=== PATIENT | female | born 1960 | race Caucasian/White ===

== ENCOUNTER → 2017-01-04 | Outpatient (REF) | payer OTHER ==
[~2017-01-04] MED LIST: /AMLO25TA PO; ADV250INH INH; ALBU17IN INH; AUGM875T27 PO; MUCI600T34 PO; NICO21DI26 EXT; NYAM10003 EXT; PRED20TA PO; SPIRIVA INH; TYLE650T30 PO
[2017-01-04 12:40] LABS: ALBUMIN 3.5 GM/DL (3.2-5.2); ALBUMIN/GLOBULIN RATIO 0.97 (1.00-1.93); ALKALINE PHOSPHATASE 160 U/L (45-117); ALT/SGPT 19 U/L (12-78); ANION GAP 6 MEQ/L (8-16); AST/SGOT 12 U/L (15-37); BILIRUBIN,TOTAL 0.3 MG/DL (0.2-1.0); BLOOD UREA NITROGEN 14 MG/DL (7-18); CALCIUM LEVEL 9.2 MG/DL (8.5-10.1); CARBON DIOXIDE LEVEL 33 MEQ/L (21-32); CHLORIDE LEVEL 102 MEQ/L (98-107); CHOLESTEROL LEVEL 145 MG/DL (<200); CREATININE FOR GFR 0.71 MG/DL (0.55-1.02); GLOMERULAR FILTRATION RATE > 60.0 (>51); GLUCOSE, FASTING 87 MG/DL (70-105); SODIUM LEVEL 141 MEQ/L (136-145); TOTAL PROTEIN 7.1 GM/DL (6.4-8.2); TRIGLYCERIDES LEVEL 118 MG/DL (<150)
== END ==
LOC: M SFHCPLAZ 10:05
PROVIDERS: ATTEND Internal Medicine
DX: E11.9 Type 2 diabetes mellitus without complications (principal); E78.5 Hyperlipidemia, unspecified; I10 Essential (primary) hypertension

== ENCOUNTER → 2017-06-09 | Outpatient (REF) | payer OTHER ==
[2017-06-09 14:17] LABS: ALBUMIN 3.5 GM/DL (3.2-5.2); ALBUMIN/GLOBULIN RATIO 0.95 (1.00-1.93); ALKALINE PHOSPHATASE 140 U/L (45-117); ALT/SGPT 22 U/L (12-78); ANION GAP 5 MEQ/L (8-16); AST/SGOT 11 U/L (15-37); BILIRUBIN,TOTAL 0.4 MG/DL (0.2-1.0); BLOOD UREA NITROGEN 18 MG/DL (7-18); CALCIUM LEVEL 9.3 MG/DL (8.5-10.1); CARBON DIOXIDE LEVEL 32 MEQ/L (21-32); CHLORIDE LEVEL 98 MEQ/L (98-107); CHOLESTEROL LEVEL 186 MG/DL (<200); CREATININE FOR GFR 0.76 MG/DL (0.55-1.02); GLOMERULAR FILTRATION RATE > 60.0 (>51); GLUCOSE, FASTING 86 MG/DL (70-105); POTASSIUM SERUM 4.7 MEQ/L (3.5-5.1); SODIUM LEVEL 135 MEQ/L (136-145); TOTAL PROTEIN 7.2 GM/DL (6.4-8.2); TRIGLYCERIDES LEVEL 141 MG/DL (<150)
== END ==
LOC: M SFHCPLAZ 09:04
PROVIDERS: ATTEND Internal Medicine
DX: E11.9 Type 2 diabetes mellitus without complications (principal); E78.5 Hyperlipidemia, unspecified; I10 Essential (primary) hypertension

== ENCOUNTER → 2017-11-30 | Outpatient (REF) | payer OTHER ==
[2017-11-30 11:19] LABS: ESTIMATED AVERAGE GLUCOSE 128 MG/DL (60-110); HEMOGLOBIN A1c 6.1 %
== END ==
LOC: M SFHCPLAZ 09:55
DX: E11.9 Type 2 diabetes mellitus without complications (principal)
CPT/HCPCS: 83036

== ENCOUNTER → 2018-05-31 | Outpatient (REF) | payer OTHER ==
[2018-05-31 12:39] LABS: MALB URINE SIEMENS 21.4 MG/L; MAU/CREAT RATIO 12.1 MCG/MG (0.0-30.0)
[2018-05-31 13:30] LABS: VITAMIN B12 LEVEL 406 PG/ML (247-911)
[2018-05-31 13:33] LABS: ESTIMATED AVERAGE GLUCOSE 131 MG/DL (60-110); HEMOGLOBIN A1c 6.2 %
== END ==
LOC: M SFHCPLAZ 09:03
DX: E11.9 Type 2 diabetes mellitus without complications (principal)
CPT/HCPCS: 82607

== ENCOUNTER 2019-01-08 11:03 | Emergency (ER) | payer OTHER ==
[~2019-01-08] VITALS: Ht 167.6 cm; Wt 108.2 kg
[2019-01-08 11:04] VITALS: BP 173/77
[2019-01-08] MEDS ORDERED: METF10004 (11:10)
[2019-01-08] MEDS ORDERED: LISI10TA4 (11:10)
[2019-01-08] MEDS ORDERED: NAPR-50 PO (11:33)
[2019-01-08] MEDS ORDERED: ROBA500T PO (11:33)
[2019-01-08] MEDS ORDERED: NAPROXEN 250 MG TAB PO ONE (11:45)
== END 2019-01-08 11:51 | disposition home or self-care (01) ==
LOC: M ED 11:03
DX: M54.5 Low back pain (principal); M62.830 Muscle spasm of back; I10 Essential (primary) hypertension; E11.9 Type 2 diabetes mellitus without complications; F17.200 Nicotine dependence, unspecified, uncomplicated; Z79.899 Other long term (current) drug therapy; Z79.84 Long term (current) use of oral hypoglycemic drugs

== ENCOUNTER → 2019-05-30 | Outpatient (REF) | payer OTHER ==
[~2019-05-30] MED LIST changes: -/AMLO25TA PO; +LISI10TA4; +METF10004; +NAPR-837 PO; +NORV2TAB PO; +ROBA500T PO
[2019-05-30 12:51] LABS: BLOOD UREA NITROGEN 11 MG/DL (7-18); CALCIUM LEVEL 9.5 MG/DL (8.8-10.2); CARBON DIOXIDE LEVEL 33 MEQ/L (21-32); CHLORIDE LEVEL 102 MEQ/L (98-107); CREATININE FOR GFR 0.84 MG/DL (0.55-1.30); GLOMERULAR FILTRATION RATE > 60.0 (>45); GLUCOSE, FASTING 88 MG/DL (70-100); POTASSIUM SERUM 4.5 MEQ/L (3.5-5.1); SODIUM LEVEL 138 MEQ/L (136-145)
== END ==
LOC: M SFHCPLAZ 10:18
PROVIDERS: ATTEND Family Medicine
DX: R79.81 Abnormal blood-gas level (principal)

== ENCOUNTER 2019-08-24 09:26 | Emergency (ER) | payer OTHER ==
[~2019-08-24] VITALS: Ht 167.6 cm; Wt 119.6 kg
[2019-08-24] MEDS ORDERED: ALBUTEROL SULFATE 2.5 MG/0.5 ML INH NEB SOLN INH ONE (10:00)
[2019-08-24] MEDS ORDERED: IPRATROPIUM 0.5MG/ALBUTEROL 2.5MG INH SOL UD 3ML (DUONEB)(J7620) NEB ONE (10:00)
[2019-08-24] MEDS ORDERED: dexameTHASONE 20 MG/5 ML VIAL (J1100) IV ONE (10:00)
--- NOTE | 2019-08-24 10:23 | REP ---
CHEST, SINGLE VIEW: Single view of the chest is performed. Comparison 11/02/2012. There is no acute infiltrate. There is mild cardiomegaly. The mediastinal silhouette is unremarkable. IMPRESSION: Mild cardiomegaly. No acute infiltrate. Electronically Signed by Kashif Bartlett MD 08/28/2019 08:44 A
[2019-08-24 10:38] LABS: BASO # 0.1 10^3/uL (0.0-0.2); BASO % 0.7 % (0.0-1.0); EOS # 0.1 10^3/uL (0.0-0.5); EOS % 1.7 % (0.0-3.0); HEMATOCRIT 38.9 % (36.0-47.0); HEMOGLOBIN 10.7 g/dl (12.0-15.5); LYMPH # 2.1 10^3/uL (1.5-5.0); LYMPH % 27.8 % (24.0-44.0); MEAN CORPUSCULAR HEMOGLOBIN 23.3 pg (27.0-33.0); MEAN CORPUSCULAR HGB CONC 27.5 g/dl (32.0-36.5); MEAN CORPUSCULAR VOLUME 84.7 fl (80.0-96.0); MONO # 0.4 10^3/uL (0.0-0.8); MONO % 5.1 % (0.0-5.0); NEUTROPHILS # 4.9 10^3/uL (1.5-8.5); NEUTROPHILS % 64.2 % (36.0-66.0); PLATELET COUNT, AUTOMATED 358 10^3/uL (150-450); RED BLOOD COUNT 4.59 10^6/uL (4.00-5.40); WHITE BLOOD COUNT 7.6 10^3/uL (4.0-10.0)
[2019-08-24 10:42] LABS: ABG BASE EXCESS 6.2 (-2.0-2.0); ABG HCO3 34.1 MEQ/L (22.0-26.0); ABG O2 SATURATION 94.4 % (95.0-99.0); ABG PARTIAL PRESSURE O2 76.5 mmHg (75.0-100.0); ABG STANDARD HCO3 30.1 MEQ/L (22.0-26.0); ABG TOTAL CO2 36.1 MEQ/L (23.0-31.0); ABG pH (ARTERIAL) 7.324 UNITS (7.350-7.450)
[2019-08-24 11:10] LABS: ALBUMIN 3.3 GM/DL (3.2-5.2); ALT/SGPT 20 U/L (12-78); BILIRUBIN,DIRECT < 0.1 MG/DL (0.0-0.2); BILIRUBIN,TOTAL 0.2 MG/DL (0.2-1.0); BLOOD UREA NITROGEN 17 MG/DL (7-18); CARBON DIOXIDE LEVEL 35 MEQ/L (21-32); CHLORIDE LEVEL 97 MEQ/L (98-107); CK-MB VALUE MASS < 1.0 NG/ML (<3.6); CPK CREATINE PHOSPHOKINASE 45 U/L (26-192); CREATININE FOR GFR 0.75 MG/DL (0.55-1.30); GLOMERULAR FILTRATION RATE > 60.0 (>45); GLUCOSE, FASTING 89 MG/DL (70-100); MB/CK RELATIVE INDEX 2.22 (< OR =4); NT-PRO BNP 56 PG/ML (<125); POTASSIUM SERUM 4.9 MEQ/L (3.5-5.1); SODIUM LEVEL 137 MEQ/L (136-145); THYROXINE (T4) 10.1 UG/DL (4.5-12.0); TOTAL PROTEIN 7.3 GM/DL (6.4-8.2); TROPONIN I < 0.02 NG/ML (< 0.10)
[2019-08-24 13:21] LABS: ABG BASE EXCESS 5.7 (-2.0-2.0); ABG HCO3 32.4 MEQ/L (22.0-26.0); ABG PARTIAL PRESSURE CO2 57.8 mmHg (35.0-45.0); ABG PARTIAL PRESSURE O2 62.6 mmHg (75.0-100.0); ABG STANDARD HCO3 29.5 MEQ/L (22.0-26.0); ABG TOTAL CO2 34.2 MEQ/L (23.0-31.0); ABG pH (ARTERIAL) 7.367 UNITS (7.350-7.450)
[2019-08-24] MEDS ORDERED: PRED10TA2 PO (13:59)
[2019-08-24] MEDS ORDERED: DOXY-350 PO (13:59)
[2019-08-24] MEDS ORDERED: PROV108A INH (13:59)
[2019-08-24] MEDS ORDERED: NICO21DI38 TOP (14:01)
[2019-08-24 14:30] VITALS: BP 148/71
--- NOTE | 2019-08-24 19:00 | ECGEPIP ---
[facility] - ED Test Date: 2019-08-24 Pat Name: SARAH BETH JERONIMO Department: Room: - Gender: Female [employer]: [facility] : 1960 Requested By: ELIAS Jacob Order Number: [id number] Reading MD: Jose Mederos Measurements Intervals [place] Rate: 80 P: 64 [place]: 150 QRS: 71 QRSD: 99 T: 38 QT: 348 QTc: 402 Interpretive Statements SINUS RHYTHM NO PRIORS FOR COMPARISON Electronically Signed on 08-24-2019 19:00:10 EDT by Jose Mederos
== END 2019-08-24 14:31 | disposition home or self-care (01) ==
LOC: M ED 09:26
DX: J44.1 Chronic obstructive pulmonary disease with (acute) exacerbation (principal); F17.200 Nicotine dependence, unspecified, uncomplicated; E11.9 Type 2 diabetes mellitus without complications; I10 Essential (primary) hypertension; E78.5 Hyperlipidemia, unspecified; Z99.81 Dependence on supplemental oxygen; Z79.899 Other long term (current) drug therapy; Z98.51 Tubal ligation status
CPT/HCPCS: 36415; 36600; 71045; 80047; 80048; 80076; 82550; 82553; 82803; 83605; 83880; 84436; 84443; 85025; 87040; 87486; 87581; 87633; 87798; 93005; 93041; 94640; 94760; 96374; 99285; J1100

== ENCOUNTER → 2019-11-26 | Outpatient (CLI) | payer OTHER ==
[~2019-11-26] MED LIST changes: +DOXY-350 PO; +NICO21DI38 TOP; +PRED10TA2 PO; +PROV108A INH
--- NOTE | 2019-11-27 04:47 | REP ---
Clinical: Follow up abnormal lung findings. Technique: Axial noncontrast images from the thoracic inlet to the upper abdomen with coronal and sagittal re-formations. Comparison: 05/22/2013. Findings: The bilateral lung rae are relatively well aerated. Lingular and adjacent anterior left lower lobe scarring is again appreciated. No focal consolidation, significant nodule, or mass lesion appreciated. No pleural effusion. No pneumothorax. Tracheobronchial tree is patent. No significant adenopathy identified. Mediastinum demonstrates mild atherosclerotic changes to the thoracic aorta and coronary arteries without aortic aneurysm or cardiomegaly. No pericardial effusion. Musculoskeletal structures are intact. Limited upper abdomen demonstrates normal bilateral adrenal glands. Impression: 1. Minimal stable left basilar scarring. 2. No acute/significant mediastinal or pleuroparenchymal process appreciated. Electronically Signed by Riley Valle MD 11/27/2019 04:38 A
== END ==
LOC: M RAD 08:44
PROVIDERS: ATTEND Internal Medicine Pulmonary Disease
DX: R91.8 Other nonspecific abnormal finding of lung field (principal); R06.00 Dyspnea, unspecified

== ENCOUNTER → 2020-01-21 | Outpatient (REF) | payer OTHER ==
[2020-01-21 14:42] LABS: HEMOGLOBIN A1c 6.1 %
== END ==
LOC: M SFHCPLAZ 09:36
PROVIDERS: ATTEND Family Medicine
DX: E11.9 Type 2 diabetes mellitus without complications (principal)

== ENCOUNTER → 2020-05-06 | Outpatient (REF) | payer OTHER ==
[2020-05-06 15:30] LABS: HEMOGLOBIN A1c 6.6 %
== END ==
LOC: M SFHCPLAZ 11:57
PROVIDERS: ATTEND Family Medicine
DX: E11.9 Type 2 diabetes mellitus without complications (principal)

== ENCOUNTER → 2020-12-08 | Outpatient (CLI) | payer OTHER ==
[~2020-12-08] MED LIST changes: +LISI10TA22; -LISI10TA4
--- NOTE | 2020-12-08 10:22 | REP ---
INDICATION: LUNG SCREENING COMPARISON: 11/26/2019 TECHNIQUE: Axial noncontrast images from the thoracic inlet to the upper abdomen using low-dose lung screening technique (LDCT). FINDINGS: Lung are demonstrate scattered linear fibroatelectatic changes relatively similar to prior examination. No acute consolidation, suspicious nodule or mass lesion appreciated. No effusion. No pneumothorax. Tracheobronchial tree is patent. IMPRESSION: Lung-RADS category 2. Chronic stable appearing fibroatelectatic changes. No suspicious nodule or mass identified. Management recommendations include annual low-dose CT surveillance. <Electronically signed by Riley Valle > 12/08/20 [id number]
== END ==
LOC: M RAD 09:42
PROVIDERS: ATTEND Nurse Practitioner Family
DX: Z12.2 Encounter for screening for malignant neoplasm of respiratory organs (principal); F17.218 Nicotine dependence, cigarettes, with other nicotine-induced disorders

== ENCOUNTER → 2021-02-11 | Outpatient (REF) | payer OTHER ==
[2021-02-11 14:16] LABS: HEMATOCRIT 41.6 % (36.0-47.0); HEMOGLOBIN 11.1 g/dl (12.0-15.5); MEAN CORPUSCULAR HEMOGLOBIN 23.1 pg (27.0-33.0); MEAN CORPUSCULAR HGB CONC 26.7 g/dl (32.0-36.5); MEAN CORPUSCULAR VOLUME 86.5 fl (80.0-96.0); PLATELET COUNT, AUTOMATED 403 10^3/uL (150-450); RED BLOOD COUNT 4.81 10^6/uL (4.00-5.40); WHITE BLOOD COUNT 8.2 10^3/uL (4.0-10.0)
[2021-02-11 14:45] LABS: HEMOGLOBIN A1c 6.1 %
[2021-02-11 14:54] LABS: ALBUMIN 3.6 GM/DL (3.2-5.2); ALT/SGPT 27 U/L (12-78); BILIRUBIN,TOTAL 0.2 MG/DL (0.2-1.0); BLOOD UREA NITROGEN 14 MG/DL (7-18); CALCIUM LEVEL 9.9 MG/DL (8.8-10.2); CARBON DIOXIDE LEVEL 38 MEQ/L (21-32); CHLORIDE LEVEL 99 MEQ/L (98-107); CHOLESTEROL LEVEL 220 MG/DL (<200); CHOLESTEROL RISK RATIO 3.793 (<5); CREATININE FOR GFR 0.72 MG/DL (0.55-1.30); GLOMERULAR FILTRATION RATE > 60.0 (>45); GLUCOSE, FASTING 91 MG/DL (70-100); HDL CHOLESTEROL 58 MG/DL (>40); LDL CHOLESTEROL 139 MG/DL (<100); NON-HDL-C 162 MG/DL; POTASSIUM SERUM 5.4 MEQ/L (3.5-5.1); SODIUM LEVEL 136 MEQ/L (136-145); TOTAL PROTEIN 7.8 GM/DL (6.4-8.2); TRIGLYCERIDES LEVEL 113 MG/DL (<150)
== END ==
LOC: M SFHCPLAZ 09:14
PROVIDERS: ATTEND Family Medicine
DX: E11.9 Type 2 diabetes mellitus without complications (principal); I10 Essential (primary) hypertension; E78.00 Pure hypercholesterolemia, unspecified

== ENCOUNTER → 2021-02-17 | Outpatient (REF) | payer OTHER ==
[2021-02-17 15:19] LABS: BLOOD UREA NITROGEN 15 MG/DL (7-18); CALCIUM LEVEL 9.6 MG/DL (8.8-10.2); CARBON DIOXIDE LEVEL 39 MEQ/L (21-32); CHLORIDE LEVEL 94 MEQ/L (98-107); CREATININE FOR GFR 0.78 MG/DL (0.55-1.30); GLOMERULAR FILTRATION RATE > 60.0 (>45); GLUCOSE, FASTING 129 MG/DL (70-100); POTASSIUM SERUM 4.8 MEQ/L (3.5-5.1); SODIUM LEVEL 135 MEQ/L (136-145)
== END ==
LOC: M SFHCPLAZ 11:25
PROVIDERS: ATTEND Family Medicine
DX: E87.5 Hyperkalemia (principal)

== ENCOUNTER → 2021-04-07 | Outpatient (CLI) | payer OTHER ==
--- NOTE | 2021-04-07 10:53 | REPPI ---
INDICATION: R09.02 HYPOXIA COMPARISON: None. TECHNIQUE: PA and lateral. FINDINGS: Diffuse reticulonodular infiltrates and lower lobe airspace disease (left greater than right). No effusion. No pneumothorax. Cardiomegaly. Skeletal structures intact. IMPRESSION: Findings suggest multifocal airspace disease consistent with acute pneumonia. Correlation and follow-up to resolution recommended. <Electronically signed by Riley Valle > 04/07/21 [id number]
== END ==
LOC: M PLAIMG 10:32
PROVIDERS: ATTEND Family Medicine
DX: R91.8 Other nonspecific abnormal finding of lung field (principal)

== ENCOUNTER → 2021-05-01 | Outpatient (REF) | payer OTHER ==
[2021-05-01 16:50] LABS: BLOOD UREA NITROGEN 12 MG/DL (7-18); CALCIUM LEVEL 8.7 MG/DL (8.8-10.2); CARBON DIOXIDE LEVEL 43 MEQ/L (21-32); CHLORIDE LEVEL 98 MEQ/L (98-107); CREATININE FOR GFR 0.64 MG/DL (0.55-1.30); GLOMERULAR FILTRATION RATE > 60.0 (>45); GLUCOSE, FASTING 118 MG/DL (70-100); POTASSIUM SERUM 4.4 MEQ/L (3.5-5.1); SODIUM LEVEL 140 MEQ/L (136-145)
== END ==
LOC: M SFHCPLAZ 12:07
PROVIDERS: ATTEND Family Medicine
DX: I51.89 Other ill-defined heart diseases (principal)

== ENCOUNTER → 2021-05-05 | Outpatient (REF) | payer OTHER | LOC: M SFHCPLAZ 09:58 | PROVIDERS: ATTEND Physician Assistant | DX: R79.81 Abnormal blood-gas level (principal); J02.9 Acute pharyngitis, unspecified ==

== ENCOUNTER → 2021-05-20 | Outpatient (CLI) | payer OTHER ==
[2021-05-20 17:59] LABS: BLOOD UREA NITROGEN 16 MG/DL (7-18); CALCIUM LEVEL 9.9 MG/DL (8.8-10.2); CARBON DIOXIDE LEVEL 39 MEQ/L (21-32); CHLORIDE LEVEL 97 MEQ/L (98-107); CREATININE FOR GFR 0.74 MG/DL (0.55-1.30); GLOMERULAR FILTRATION RATE > 60.0 (>45); GLUCOSE, FASTING 144 MG/DL (70-100); POTASSIUM SERUM 4.8 MEQ/L (3.5-5.1); SODIUM LEVEL 139 MEQ/L (136-145)
== END ==
LOC: M PLALAB 11:41
PROVIDERS: ATTEND Family Medicine
DX: I51.89 Other ill-defined heart diseases (principal)

== ENCOUNTER → 2021-05-28 | Outpatient (CLI) | payer OTHER ==
--- NOTE | 2021-05-29 00:43 | ECHO ---
ECHOCARDIOGRAM DATE OF PROCEDURE: 05/28/2021 Age: 61 Gender: Female Height: 165 cm Weight: 72.6 kg REFERRING PHYSICIAN: Dr. Wilmer Maldonado PATIENT LOCATION: RE[facility] FOR TESTIND MEASUREMENTS: IVS 1.2 cm LV 5.3 cm LVPW 1.1 cm LA 3.7 cm Aorta 3.3 cm IVC 2.3 cm DOPPLER MEASUREMENT Peak velocity across the LVOT 1.1 m/s Mitral E 0.6 Mitral A 0.8 with a ratio of 0.9 2D COMMENTS: 1. Normal left ventricular size, wall thickness, and normal global left ventricular systolic function. Estimated left ventricular systolic ejection fraction is 60 to 65%. 2. Normal left atrium. The right atrium and the right ventricle appear to be mildly enlarged. The right ventricular appeared to be mildly hypokinetic. 3. There is a small color flow jet noted at the level of the fossa ovalis that may represent a patent foramen ovale/PFO. 4. Normal aortic root. 5. No pericardial effusion. 6. The aortic valve, mitral valve and tricuspid valve appear to be normal. The pulmonic valve and proximal pulmonary artery branches were not well visualized. 7. The inferior vena cava was dilated, central venous pressure mildly elevated. DOPPLER: No significant valvular regurgitation or stenosis noted. Abnormal relaxation pattern was noted across the mitral valve leaflets as well as the mitral valve annulus, consistent with features of grade 1 left ventricular diastolic dysfunction. IMPRESSION: 1. Normal global left ventricular systolic function. There are some features are grade 1 left ventricular diastolic dysfunction manifested by abnormal relaxation. 2. Possible patent foramen ovale. 3. Mildly dilated right atrium and right ventricle with some degree of right ventricular systolic dysfunction. No evidence of tricuspid regurgitation or stenosis. 4. There are some features of elevated central venous pressure. The inferior vena cava is dilated.
== END ==
LOC: M CARPUL 08:22
PROVIDERS: ATTEND Family Medicine
DX: I51.89 Other ill-defined heart diseases (principal)

== ENCOUNTER → 2021-11-11 | Outpatient (CLI) | payer OTHER ==
[2021-11-11 15:53] LABS: BASO # 0.1 10^3/uL (0.0-0.2); BASO % 0.6 % (0.0-1.0); EOS # 0.2 10^3/uL (0.0-0.5); EOS % 2.5 % (0.0-3.0); HEMATOCRIT 40.8 % (36.0-47.0); HEMOGLOBIN 11.5 g/dl (12.0-15.5); LYMPH # 2.3 10^3/uL (1.5-5.0); LYMPH % 28.6 % (24.0-44.0); MEAN CORPUSCULAR HEMOGLOBIN 24.4 pg (27.0-33.0); MEAN CORPUSCULAR HGB CONC 28.2 g/dl (32.0-36.5); MEAN CORPUSCULAR VOLUME 86.4 fl (80.0-96.0); MONO # 0.5 10^3/uL (0.0-0.8); MONO % 6.3 % (2.0-8.0); NEUTROPHILS % 61.3 % (36.0-66.0); PLATELET COUNT, AUTOMATED 394 10^3/uL (150-450); RED BLOOD COUNT 4.72 10^6/uL (4.00-5.40); WHITE BLOOD COUNT 8.2 10^3/uL (4.0-10.0)
[2021-11-11 16:25] LABS: BLOOD UREA NITROGEN 15 MG/DL (7-18); CALCIUM LEVEL 9.2 MG/DL (8.8-10.2); CARBON DIOXIDE LEVEL 37 MEQ/L (21-32); CHLORIDE LEVEL 101 MEQ/L (98-107); CHOLESTEROL LEVEL 180 MG/DL (<200); GLOMERULAR FILTRATION RATE > 60.0 (>45); GLUCOSE, FASTING 98 MG/DL (70-100); HDL CHOLESTEROL 48 MG/DL (>40); LDL CHOLESTEROL 99 MG/DL (<100); NON-HDL-C 132 MG/DL; POTASSIUM SERUM 5.4 MEQ/L (3.5-5.1); SODIUM LEVEL 139 MEQ/L (136-145); TRIGLYCERIDES LEVEL 165 MG/DL (<150)
[2021-11-11 16:27] LABS: MALB URINE SIEMENS 21.1 MG/L; MAU/CREAT RATIO 15.9 MCG/MG (0.0-30.0)
[2021-11-11 16:59] LABS: HEMOGLOBIN A1c 6.4 %
== END ==
LOC: M PLALAB 12:30
PROVIDERS: ATTEND Student in an Organized Health Care Education/Training Program
DX: E11.9 Type 2 diabetes mellitus without complications (principal)

== ENCOUNTER → 2021-12-21 | Outpatient (CLI) | payer OTHER | LOC: M RAD 09:18 | PROVIDERS: ATTEND Nurse Practitioner Family | DX: Z12.2 Encounter for screening for malignant neoplasm of respiratory organs (principal); Z87.891 Personal history of nicotine dependence ==

== ENCOUNTER → 2021-12-21 | Outpatient (CLI) | payer OTHER ==
[2021-12-21 18:06] LABS: PERCENT SATURATION 7.5 % (13.2-45.0)
== END ==
LOC: M PLALAB 15:30
PROVIDERS: ATTEND Student in an Organized Health Care Education/Training Program
DX: D64.9 Anemia, unspecified (principal)

== ENCOUNTER 2022-03-22 12:28 | Emergency (ER) | payer OTHER ==
[~2022-03-22] VITALS: Ht 170.2 cm; Wt 120.5 kg
[2022-03-22] MEDS ORDERED: FURO40TA2 (12:45)
[2022-03-22] MEDS ORDERED: FLUT1INH3 (12:45)
[2022-03-22] MEDS ORDERED: INCR1INH (12:45)
[2022-03-22] MEDS ORDERED: predniSONE 20 MG TAB PO ONE (13:40)
[2022-03-22 14:02] LABS: VENOUS BASE EXCESS 6.7 (-2.0-2.0); VENOUS HCO3 32.9 MEQ/L (23.0-27.0); VENOUS O2 SATURATION 94.7 % (60.0-80.0); VENOUS PARTIAL PRESSURE CO2 54.9 mmHg (38.0-50.0); VENOUS PARTIAL PRESSURE O2 70.6 mmHg (30.0-50.0); VENOUS PH 7.395 UNITS (7.330-7.430); VENOUS STANDARD HCO3 30.5 MEQ/L; VENOUS TOTAL CO2 34.5 MEQ/L (24.0-28.0)
[2022-03-22 14:08] LABS: BASO # 0.1 10^3/uL (0.0-0.2); BASO % 0.6 % (0.0-1.0); EOS # 0.2 10^3/uL (0.0-0.5); EOS % 2.5 % (0.0-3.0); HEMATOCRIT 35.5 % (36.0-47.0); HEMOGLOBIN 9.8 g/dl (12.0-15.5); LYMPH # 1.7 10^3/uL (1.5-5.0); LYMPH % 20.3 % (24.0-44.0); MEAN CORPUSCULAR HEMOGLOBIN 24.1 pg (27.0-33.0); MEAN CORPUSCULAR HGB CONC 27.6 g/dl (32.0-36.5); MEAN CORPUSCULAR VOLUME 87.4 fl (80.0-96.0); MONO # 0.4 10^3/uL (0.0-0.8); MONO % 4.8 % (2.0-8.0); NEUTROPHILS # 5.9 10^3/uL (1.5-8.5); NEUTROPHILS % 70.6 % (36.0-66.0); PLATELET COUNT, AUTOMATED 311 10^3/uL (150-450); RED BLOOD COUNT 4.06 10^6/uL (4.00-5.40); WHITE BLOOD COUNT 8.4 10^3/uL (4.0-10.0)
[2022-03-22] MEDS: COMBIVENT RESPIMAT 100-20MCG INHALER 4GM INH SCH ×3 (14:46→14:51)
[2022-03-22 14:55] LABS: ALT/SGPT 25 U/L (12-78); BILIRUBIN,DIRECT < 0.1 MG/DL (0.0-0.2); BILIRUBIN,TOTAL 0.3 MG/DL (0.2-1.0); BLOOD UREA NITROGEN 12 MG/DL (7-18); CALCIUM LEVEL 8.9 MG/DL (8.8-10.2); CARBON DIOXIDE LEVEL 39 MEQ/L (21-32); CHLORIDE LEVEL 97 MEQ/L (98-107); GLOMERULAR FILTRATION RATE > 60.0 (>45); GLUCOSE, FASTING 136 MG/DL (70-100); NT-PRO BNP 132 PG/ML (<125); POTASSIUM SERUM 5.3 MEQ/L (3.5-5.1); SODIUM LEVEL 135 MEQ/L (136-145); TOTAL PROTEIN 7.4 GM/DL (6.4-8.2)
[2022-03-22 17:01] VITALS: BP 167/75
[2022-03-22] MEDS ORDERED: PROV108A INH (17:27)
[2022-03-22] MEDS ORDERED: PRED20TA PO (17:28)
[2022-03-22] MEDS ORDERED: LEVO750T14 PO (17:29)
[2022-03-22] MEDS ORDERED: EASY-106 XX ×2 (17:30→17:32)
[2022-03-22] MEDS ORDERED: ALB2.5NEB NEB (17:33)
== END 2022-03-22 17:44 | disposition home or self-care (01) ==
LOC: M ED 12:28
DX: J44.9 Chronic obstructive pulmonary disease, unspecified (principal); E11.9 Type 2 diabetes mellitus without complications; I10 Essential (primary) hypertension; E78.5 Hyperlipidemia, unspecified; R60.9 Edema, unspecified; E66.8 Other obesity; Z99.81 Dependence on supplemental oxygen; Z87.891 Personal history of nicotine dependence; Z79.899 Other long term (current) drug therapy; Z79.84 Long term (current) use of oral hypoglycemic drugs
CPT/HCPCS: 36415; 71045; 80048; 80076; 82803; 83605; 83880; 84443; 85025; 87040; 87486; 87581; 87633; 87798; 93005; 93041; 94640; 99285; J7512

== ENCOUNTER 2022-04-05 16:53 | Emergency (ER) | payer MEDICAID, MEDICARE, OTHER ==
[~2022-04-05] VITALS: Ht 167.6 cm; Wt 130.4 kg
[~2022-04-05 16:53] MED LIST changes: +ALB2.5NEB NEB; +EASY-106 XX; +FLUT1INH3; +FURO40TA2; +INCR1INH; +LEVO750T14 PO
[2022-04-05 18:41] LABS: VENOUS BASE EXCESS 13.4 (-2.0-2.0); VENOUS HCO3 43.8 MEQ/L (23.0-27.0); VENOUS O2 SATURATION 69.1 % (60.0-80.0); VENOUS PARTIAL PRESSURE CO2 96.8 mmHg (38.0-50.0); VENOUS PARTIAL PRESSURE O2 39.5 mmHg (30.0-50.0); VENOUS PH 7.273 UNITS (7.330-7.430); VENOUS STANDARD HCO3 36.6 MEQ/L; VENOUS TOTAL CO2 46.7 MEQ/L (24.0-28.0)
[2022-04-05 18:50] LABS: BASO # 0.1 10^3/uL (0.0-0.2); BASO % 0.5 % (0.0-1.0); EOS # 0.1 10^3/uL (0.0-0.5); EOS % 1.5 % (0.0-3.0); HEMOGLOBIN 10.2 g/dl (12.0-15.5); LYMPH # 1.7 10^3/uL (1.5-5.0); LYMPH % 18.1 % (24.0-44.0); MEAN CORPUSCULAR HEMOGLOBIN 24.7 pg (27.0-33.0); MEAN CORPUSCULAR HGB CONC 28.3 g/dl (32.0-36.5); MEAN CORPUSCULAR VOLUME 87.2 fl (80.0-96.0); MONO # 0.5 10^3/uL (0.0-0.8); MONO % 5.7 % (2.0-8.0); NEUTROPHILS % 73.4 % (36.0-66.0); PLATELET COUNT, AUTOMATED 348 10^3/uL (150-450); RED BLOOD COUNT 4.13 10^6/uL (4.00-5.40); WHITE BLOOD COUNT 9.6 10^3/uL (4.0-10.0)
[2022-04-05] MEDS ORDERED: FUROSEMIDE 40MG/4ML VIAL (J1940) IV ONE (19:10)
[2022-04-05 19:15] LABS: CK-MB VALUE MASS < 1.0 NG/ML (<3.6); CPK CREATINE PHOSPHOKINASE 40 U/L (26-192)
[2022-04-05 19:21] LABS: ALT/SGPT 17 U/L (12-78); BILIRUBIN,DIRECT < 0.1 MG/DL (0.0-0.2); BILIRUBIN,TOTAL 0.2 MG/DL (0.2-1.0); BLOOD UREA NITROGEN 12 MG/DL (7-18); CARBON DIOXIDE LEVEL 42 MEQ/L (21-32); CHLORIDE LEVEL 94 MEQ/L (98-107); CREATININE FOR GFR 0.74 MG/DL (0.55-1.30); GLOMERULAR FILTRATION RATE > 60.0 (>45); GLUCOSE, FASTING 131 MG/DL (70-100); NT-PRO BNP 73 PG/ML (<125); POTASSIUM SERUM 4.7 MEQ/L (3.5-5.1); SODIUM LEVEL 137 MEQ/L (136-145); THYROXINE (T4) 8.4 UG/DL (4.5-12.0); TOTAL PROTEIN 7.2 GM/DL (6.4-8.2)
[2022-04-05 21:18] LABS: ABG HCO3 40.5 MEQ/L (22.0-26.0); ABG O2 SATURATION 91.3 % (95.0-99.0); ABG PARTIAL PRESSURE O2 62.1 mmHg (75.0-100.0); ABG STANDARD HCO3 35.6 MEQ/L (22.0-26.0); ABG TOTAL CO2 42.8 MEQ/L (23.0-31.0); ABG pH (ARTERIAL) 7.346 UNITS (7.350-7.450)
[2022-04-05 21:19] LABS: ABG PARTIAL PRESSURE CO2 75.7 mmHg (35.0-45.0)
[2022-04-05] MEDS ORDERED: CEFD300C41 PO (21:31)
[2022-04-05] MEDS ORDERED: MEDR4PAK PO (21:31)
[2022-04-05 21:46] VITALS: BP 133/68
== END 2022-04-05 22:42 | disposition home or self-care (01) ==
LOC: M ED 16:53
DX: L03.115 Cellulitis of right lower limb (principal); L03.116 Cellulitis of left lower limb; J44.9 Chronic obstructive pulmonary disease, unspecified; M71.22 Synovial cyst of popliteal space [Baker], left knee; I10 Essential (primary) hypertension; E11.9 Type 2 diabetes mellitus without complications; I25.10 Atherosclerotic heart disease of native coronary artery without angina pectoris; Z99.81 Dependence on supplemental oxygen; Z79.899 Other long term (current) drug therapy; Z79.84 Long term (current) use of oral hypoglycemic drugs
CPT/HCPCS: 36600; 71045; 80048; 80076; 82550; 82553; 82803; 83605; 83880; 84436; 84443; 84484; 85025; 87040; 87486; 87581; 87633; 87798; 93005; 93041; 93970; 96374; 99285; J1940

== ENCOUNTER → 2022-05-05 | Outpatient (CLI) | payer MEDICARE, MEDICAID ==
[~2022-05-05] MED LIST changes: +CEFD300C41 PO; +MEDR4PAK PO
[2022-05-05 13:30] LABS: BASO % 0.4 % (0.0-1.0); EOS # 0.1 10^3/uL (0.0-0.5); EOS % 1.9 % (0.0-3.0); HEMATOCRIT 36.7 % (36.0-47.0); HEMOGLOBIN 10.2 g/dl (12.0-15.5); LYMPH # 1.7 10^3/uL (1.5-5.0); LYMPH % 23.8 % (24.0-44.0); MEAN CORPUSCULAR HGB CONC 27.8 g/dl (32.0-36.5); MEAN CORPUSCULAR VOLUME 86.4 fl (80.0-96.0); MONO # 0.4 10^3/uL (0.0-0.8); NEUTROPHILS # 4.8 10^3/uL (1.5-8.5); NEUTROPHILS % 68.2 % (36.0-66.0); PLATELET COUNT, AUTOMATED 372 10^3/uL (150-450); RED BLOOD COUNT 4.25 10^6/uL (4.00-5.40)
[2022-05-05 13:55] LABS: BLOOD UREA NITROGEN 11 MG/DL (7-18); CALCIUM LEVEL 9.8 MG/DL (8.8-10.2); CARBON DIOXIDE LEVEL 34 MEQ/L (21-32); CHLORIDE LEVEL 99 MEQ/L (98-107); CHOLESTEROL LEVEL 168 MG/DL (<200); CHOLESTEROL RISK RATIO 4.097 (<5); CREATININE FOR GFR 0.73 MG/DL (0.55-1.30); GLOMERULAR FILTRATION RATE > 60.0 (>45); GLUCOSE, FASTING 119 MG/DL (70-100); HDL CHOLESTEROL 41 MG/DL (>40); LDL CHOLESTEROL 96 MG/DL (<100); NON-HDL-C 127 MG/DL; POTASSIUM SERUM 4.4 MEQ/L (3.5-5.1); SODIUM LEVEL 138 MEQ/L (136-145); TRIGLYCERIDES LEVEL 157 MG/DL (<150)
[2022-05-05 14:15] LABS: HEMOGLOBIN A1c 6.7 %
== END ==
LOC: M PLALAB 09:51
PROVIDERS: ATTEND Student in an Organized Health Care Education/Training Program
DX: J44.1 Chronic obstructive pulmonary disease with (acute) exacerbation (principal); I10 Essential (primary) hypertension; E78.5 Hyperlipidemia, unspecified; E11.9 Type 2 diabetes mellitus without complications

== ENCOUNTER → 2022-06-09 | Outpatient (CLI) | payer MEDICARE, MEDICAID ==
[2022-06-09 15:45] LABS: BLOOD UREA NITROGEN 16 MG/DL (7-18); CALCIUM LEVEL 9.3 MG/DL (8.8-10.2); CARBON DIOXIDE LEVEL 37 MEQ/L (21-32); CHLORIDE LEVEL 97 MEQ/L (98-107); CREATININE FOR GFR 0.82 MG/DL (0.55-1.30); GLOMERULAR FILTRATION RATE > 60.0 (>45); GLUCOSE, FASTING 127 MG/DL (70-100); POTASSIUM SERUM 4.8 MEQ/L (3.5-5.1); SODIUM LEVEL 138 MEQ/L (136-145)
== END ==
LOC: M PLALAB 11:00
PROVIDERS: ATTEND Student in an Organized Health Care Education/Training Program
DX: R60.9 Edema, unspecified (principal)

== ENCOUNTER → 2022-08-29 | Outpatient (REF) | payer MEDICARE, OTHER ==
[~2022-08-29] MED LIST changes: +ALBU6.7H6 INH; -PROV108A INH
== END ==
LOC: M LAB REF 19:56
PROVIDERS: ATTEND Physician Assistant Medical
DX: B34.9 Viral infection, unspecified (principal)

== ENCOUNTER → 2022-08-30 | Outpatient (CLI) | payer MEDICARE, OTHER ==
[2022-08-30 16:16] LABS: BLOOD UREA NITROGEN 18 MG/DL (7-18); CALCIUM LEVEL 9.4 MG/DL (8.8-10.2); CARBON DIOXIDE LEVEL 38 MEQ/L (21-32); CHLORIDE LEVEL 96 MEQ/L (98-107); CREATININE FOR GFR 0.83 MG/DL (0.55-1.30); GLOMERULAR FILTRATION RATE > 60.0 (>45); GLUCOSE, FASTING 132 MG/DL (70-100); POTASSIUM SERUM 4.6 MEQ/L (3.5-5.1); SODIUM LEVEL 136 MEQ/L (136-145)
== END ==
LOC: M PLALAB 13:05
PROVIDERS: ATTEND Student in an Organized Health Care Education/Training Program
DX: I10 Essential (primary) hypertension (principal)

== ENCOUNTER 2022-10-18 16:37 | Emergency (ER) | payer MEDICARE, OTHER ==
[~2022-10-18] VITALS: Ht 167.6 cm; Wt 126.0 kg
[~2022-10-18 16:37] MED LIST changes: -DOXY-350 PO; +DOXY-444 PO
[2022-10-18] MEDS ORDERED: JARD1TAB3 (17:06)
[2022-10-18 20:08] VITALS: BP 157/74
[2022-10-18] MEDS ORDERED: PRED20TA PO (20:47)
[2022-10-18] MEDS ORDERED: AMOX875T2 PO (20:48)
[2022-10-18] MEDS ORDERED: ZITHTAB PO (20:48)
[2022-10-18] MEDS ORDERED: predniSONE 20 MG TAB PO ONE (20:50)
[2022-10-18 21:19] VITALS: O2SAT 95
== END 2022-10-18 21:21 | disposition home or self-care (01) ==
LOC: M ED 16:37
DX: J44.1 Chronic obstructive pulmonary disease with (acute) exacerbation (principal); I51.7 Cardiomegaly; E11.9 Type 2 diabetes mellitus without complications; E78.5 Hyperlipidemia, unspecified; J44.9 Chronic obstructive pulmonary disease, unspecified; Z87.01 Personal history of pneumonia (recurrent); Z87.891 Personal history of nicotine dependence; Z79.84 Long term (current) use of oral hypoglycemic drugs; Z79.899 Other long term (current) drug therapy
CPT/HCPCS: 71046; 87486; 87581; 87633; 87798; 99283; J7512

== ENCOUNTER → 2023-02-04 | Outpatient (CLI) | payer MEDICARE, OTHER ==
[~2023-02-04] MED LIST changes: +AMOX875T2 PO; +JARD1TAB3; +ZITHTAB PO
== END ==
LOC: M RAD 06:37
PROVIDERS: ATTEND Internal Medicine Pulmonary Disease
DX: Z12.2 Encounter for screening for malignant neoplasm of respiratory organs (principal); Z87.891 Personal history of nicotine dependence

== ENCOUNTER → 2023-03-07 | Outpatient (REF) | payer MEDICARE, OTHER | LOC: M SFHCPLAZ 16:16 | PROVIDERS: ATTEND Student in an Organized Health Care Education/Training Program | DX: R06.09 Other forms of dyspnea (principal); R09.81 Nasal congestion; J44.9 Chronic obstructive pulmonary disease, unspecified ==

== ENCOUNTER → 2023-03-17 | Outpatient (REF) | payer MEDICARE, OTHER | LOC: M SFHCPLAZ 14:05 | PROVIDERS: ATTEND Internal Medicine Hematology | DX: E78.5 Hyperlipidemia, unspecified (principal); I10 Essential (primary) hypertension; E11.9 Type 2 diabetes mellitus without complications; Z51.81 Encounter for therapeutic drug level monitoring ==

== ENCOUNTER → 2023-03-22 | Outpatient (CLI) | payer MEDICARE, OTHER ==
[2023-03-22 15:07] LABS: BASO # 0.1 10^3/uL (0.0-0.2); BASO % 0.6 % (0.0-1.0); EOS # 0.1 10^3/uL (0.0-0.5); EOS % 1.6 % (0.0-3.0); HEMOGLOBIN 11.4 g/dl (12.0-15.5); LYMPH # 1.8 10^3/uL (1.5-5.0); MEAN CORPUSCULAR HEMOGLOBIN 23.9 pg (27.0-33.0); MEAN CORPUSCULAR HGB CONC 27.1 g/dl (32.0-36.5); MEAN CORPUSCULAR VOLUME 88.1 fl (80.0-96.0); MONO # 0.5 10^3/uL (0.0-0.8); MONO % 6.2 % (2.0-8.0); NEUTROPHILS # 5.7 10^3/uL (1.5-8.5); PLATELET COUNT, AUTOMATED 346 10^3/uL (150-450); RED BLOOD COUNT 4.77 10^6/uL (4.00-5.40); WHITE BLOOD COUNT 8.2 10^3/uL (4.0-10.0)
[2023-03-22 15:17] LABS: ALBUMIN 3.5 G/DL (3.2-5.2); ALKALINE PHOSPHATASE 132 U/L (46-116); ALT/SGPT 20 U/L (7.0-40); AST/SGOT 12 U/L (<34); BILIRUBIN,TOTAL 0.3 MG/DL (0.3-1.2); BLOOD UREA NITROGEN 13 MG/DL (9-23); CALCIUM LEVEL 9.6 MG/DL (8.3-10.6); CARBON DIOXIDE LEVEL 37 MMOL/L (20-31); CHLORIDE LEVEL 98 MMOL/L (98-107); CHOLESTEROL LEVEL 190 MG/DL (<200); CHOLESTEROL RISK RATIO 4.22 (<5); GLOMERULAR FILTRATION RATE > 60.0 (>45); GLUCOSE, FASTING 156 MG/DL (74-106); LDL CHOLESTEROL 108.2 MG/DL (<100); POTASSIUM SERUM 4.7 MMOL/L (3.5-5.1); SODIUM LEVEL 137 MMOL/L (136-145); TOTAL PROTEIN 7.3 G/DL (5.7-8.2); TRIGLYCERIDES LEVEL 184 MG/DL (<150)
[2023-03-22 15:18] LABS: VITAMIN B12 LEVEL 416 PG/ML (211-911)
[2023-03-22 15:19] LABS: HEMOGLOBIN A1c 6.7 % (4.0-6.0)
[2023-03-22 15:39] LABS: CREATININE, URINE 18.6 MG/DL; MALB URINE SIEMENS < 3.0 MG/L; MAU/CREAT RATIO 16.1 MCG/MG (0.0-30.0)
== END ==
LOC: M PLALAB 10:59
PROVIDERS: ATTEND Student in an Organized Health Care Education/Training Program
DX: I10 Essential (primary) hypertension (principal); E11.9 Type 2 diabetes mellitus without complications; E78.5 Hyperlipidemia, unspecified; Z51.81 Encounter for therapeutic drug level monitoring

== ENCOUNTER → 2023-04-18 | Outpatient (CLI) | payer MEDICARE, OTHER | LOC: M WHC 09:02 | PROVIDERS: ATTEND Student in an Organized Health Care Education/Training Program | DX: Z12.31 Encounter for screening mammogram for malignant neoplasm of breast (principal) ==

== ENCOUNTER 2023-07-20 07:03 | Day surgery (SDC) | payer MEDICARE, OTHER ==
[~2023-07-20] VITALS: Ht 167.6 cm; Wt 125.6 kg
[~2023-07-20 07:03] MED LIST changes: +AMMO12CR7 TOP; +ASPI81TA26 PO; -FLUT1INH3; +FLUT1INH3 NAS SAD; -FURO40TA2; +FURO40TA2 PO; -JARD1TAB3; +JARD1TAB3 PO; -METF10004; +METF10004 PO
[2023-07-20] MEDS ORDERED: LIDOCAINE 2% 100MG/5ML SDV (FOR ANES.) As Ordered ONE (07:15)
[2023-07-20] MEDS ORDERED: propofoL 200 MG/20 ML VIAL As Ordered ONE ×2 (07:16→07:56)
[2023-07-20 08:05] VITALS: TEMP 98.3
[2023-07-20 08:25] VITALS: BP 150/80; O2SAT 96
== END 2023-07-20 08:44 | disposition home or self-care (01) ==
LOC: M OPP 07:03
PROVIDERS: ATTEND Surgery
DX: Z12.11 Encounter for screening for malignant neoplasm of colon (principal); K57.30 Diverticulosis of large intestine without perforation or abscess without bleeding; K64.8 Other hemorrhoids; Z87.891 Personal history of nicotine dependence; Z79.2 Long term (current) use of antibiotics; Z79.51 Long term (current) use of inhaled steroids; Z79.52 Long term (current) use of systemic steroids; Z79.82 Long term (current) use of aspirin; Z79.84 Long term (current) use of oral hypoglycemic drugs; Z79.899 Other long term (current) drug therapy

== ENCOUNTER → 2023-09-14 | Outpatient (CLI) | payer MEDICARE, OTHER ==
[~2023-09-14] MED LIST changes: +AIRD1INH3 INH; +ALBU2.5V10 INH; +ALBU8.5H INH; +ASPI-161 PO; +AZIT-12 PO; -CEFD300C41 PO; +CEFD300C42 PO; +CIPRHCOTIC OTIC; +INCR1INH INH; +LISI5TAB11; +LISI5TAB11 PO
== END ==
LOC: M RAD 10:07
PROVIDERS: ATTEND Family Medicine
DX: Z53.9 Procedure and treatment not carried out, unspecified reason (principal)

== ENCOUNTER 2023-09-15 21:05 | Observation (INO) | payer MEDICARE, MEDICAID ==
[~2023-09-15] VITALS: Ht 167.6 cm; Wt 129.1 kg
[~2023-09-15 21:05] MED LIST changes: -AIRD1INH3 INH; -ALBU2.5V10 INH; -ALBU8.5H INH; -ASPI-161 PO; -AZIT-12 PO; -CIPRHCOTIC OTIC; -INCR1INH INH; -LISI5TAB11; -LISI5TAB11 PO
[2023-09-15] MEDS ORDERED: LISI5TAB11 (21:20)
[2023-09-15 22:24] LABS: BASO % 0.5 % (0.0-1.0); EOS # 0.1 10^3/uL (0.0-0.5); EOS % 1.5 % (0.0-3.0); HEMATOCRIT 39.9 % (36.0-47.0); HEMOGLOBIN 11.6 g/dl (12.0-15.5); LYMPH # 2.1 10^3/uL (1.5-5.0); LYMPH % 24.3 % (24.0-44.0); MEAN CORPUSCULAR HEMOGLOBIN 25.3 pg (27.0-33.0); MEAN CORPUSCULAR HGB CONC 29.1 g/dl (32.0-36.5); MEAN CORPUSCULAR VOLUME 87.1 fl (80.0-96.0); MONO # 0.4 10^3/uL (0.0-0.8); MONO % 4.4 % (2.0-8.0); NEUTROPHILS % 68.7 % (36.0-66.0); PLATELET COUNT, AUTOMATED 356 10^3/uL (150-450); RED BLOOD COUNT 4.58 10^6/uL (4.00-5.40); WHITE BLOOD COUNT 8.7 10^3/uL (4.0-10.0)
[2023-09-15 22:30] LABS: ERYTHROCYTE SEDIMENTATION RATE 93 mm/hr (0-30)
[2023-09-15] MEDS ORDERED: PIPERACILLIN/TAZOBACTAM SOD 3.375 GM in D5W MINI-BAG PLUS 50 ML IV ONE (22:30)
[2023-09-15 22:48] LABS: ALBUMIN 3.4 G/DL (3.2-5.2); ALKALINE PHOSPHATASE 126 U/L (46-116); ALT/SGPT 17 U/L (7.0-40); AST/SGOT 12 U/L (<34); BILIRUBIN,DIRECT < 0.1 MG/DL (<0.4); BILIRUBIN,TOTAL 0.2 MG/DL (0.3-1.2); BLOOD UREA NITROGEN 18 MG/DL (9-23); CALCIUM LEVEL 8.9 MG/DL (8.3-10.6); CARBON DIOXIDE LEVEL 33 MMOL/L (20-31); CHLORIDE LEVEL 100 MMOL/L (98-107); CREATININE FOR GFR 0.89 MG/DL (0.55-1.30); GLOMERULAR FILTRATION RATE > 60.0 (>45); GLUCOSE, FASTING 148 MG/DL (74-106); POTASSIUM SERUM 4.4 MMOL/L (3.5-5.1); SODIUM LEVEL 139 MMOL/L (136-145); TOTAL PROTEIN 7.6 G/DL (5.7-8.2)
[2023-09-15 22:52] LABS: RSV AMPLIFICATION NEGATIVE (NEGATIVE)
[2023-09-16] MEDS ORDERED: MAALOX 30 ML SUSP *UDC PO PRN (00:10)
[2023-09-16] MEDS ORDERED: MOM 30ML SUSPENSION UDC PO PRN (00:10)
[2023-09-16] MEDS ORDERED: ACETAMINOPHEN TAB 650MG DOSE (2X325MG) PO PRN (00:10)
[2023-09-16 00:30] VITALS: BP 154/71; TEMP 98.2; O2SAT 94
[2023-09-16] MEDS ORDERED: AIRD1INH3 INH (00:44)
[2023-09-16] MEDS ORDERED: ALBU8.5H INH (00:44)
[2023-09-16] MEDS ORDERED: INCR1INH INH (00:44)
[2023-09-16] MEDS ORDERED: ASPI-161 PO (00:44)
[2023-09-16] MEDS ORDERED: ALBU2.5V10 INH (00:44)
[2023-09-16] MEDS ORDERED: AZIT-12 PO (00:44)
[2023-09-16] MEDS ORDERED: LISI5TAB11 PO (00:44)
[2023-09-16] MEDS ORDERED: HOME MED LIST COMPLETE! XX SCH (00:45)
[2023-09-16] MEDS ORDERED: DEXTROSE 50% 50ML SYRINGE IV PRN (00:50)
[2023-09-16] MEDS ORDERED: GLUCAGON INJ 1MG VIAL SC PRN (00:50)
[2023-09-16] MEDS ORDERED: ALBUTEROL 90 MCG/ACT 8GM HFA INHALER INH PRN (00:50)
[2023-09-16] MEDS ORDERED: GLUCOSE 4GM CHEW TABLET PO PRN (00:50)
[2023-09-16] MEDS ORDERED: amLODIPine 5 MG TAB PO ONE (01:00)
[2023-09-16] MEDS ORDERED: PIPERACILLIN/TAZOBACTAM SOD 3.375 GM in D5W MINI-BAG PLUS 50 ML IV SCH (05:00)
[2023-09-16 05:38] VITALS: BP 100/58; TEMP 97.9; O2SAT 93
[2023-09-16] MEDS ORDERED: HEPARIN SOD (PORCINE) 5000UNITS/ML 1ML VIAL/SYRINGE SC SCH (06:00)
[2023-09-16] MEDS ORDERED: INSULIN LISPRO (NovoLOG) PER UNIT SC SCH ×2 (07:30→21:00)
[2023-09-16] MEDS ORDERED: TIOTROPIUM INHALER/CAPSULE (SPIRIVA) INH SCH (08:00)
[2023-09-16] MEDS ORDERED: ADVAIR HFA 230/21MCG INHALER INH SCH (08:00)
[2023-09-16 08:28] LABS: BASO % 0.5 % (0.0-1.0); EOS # 0.2 10^3/uL (0.0-0.5); EOS % 2.3 % (0.0-3.0); HEMATOCRIT 36.8 % (36.0-47.0); HEMOGLOBIN 10.7 g/dl (12.0-15.5); LYMPH # 2.4 10^3/uL (1.5-5.0); MEAN CORPUSCULAR HEMOGLOBIN 25.2 pg (27.0-33.0); MEAN CORPUSCULAR HGB CONC 29.1 g/dl (32.0-36.5); MEAN CORPUSCULAR VOLUME 86.8 fl (80.0-96.0); MONO # 0.4 10^3/uL (0.0-0.8); MONO % 5.2 % (2.0-8.0); NEUTROPHILS # 4.9 10^3/uL (1.5-8.5); NEUTROPHILS % 61.2 % (36.0-66.0); PLATELET COUNT, AUTOMATED 318 10^3/uL (150-450); RED BLOOD COUNT 4.24 10^6/uL (4.00-5.40); WHITE BLOOD COUNT 7.9 10^3/uL (4.0-10.0)
[2023-09-16 08:47] VITALS: BP 139/84
[2023-09-16] MEDS ORDERED: lisinopriL 5 MG TAB PO SCH (09:00)
[2023-09-16] MEDS ORDERED: AZITHROMYCIN 250MG TABLET PO SCH (09:00)
[2023-09-16] MEDS ORDERED: ASPIRIN 81MG ENTERIC TABLET PO SCH (09:00)
[2023-09-16] MEDS ORDERED: FUROSEMIDE 40 MG TAB PO SCH (09:00)
[2023-09-16] MEDS ORDERED: IPRATROPIUM HFA INHALER 12.9 GRAMS (ATROVENT HFA) INH SCH (09:00)
[2023-09-16 09:17] LABS: IMMUNOGLOBULIN A 338.8 MG/DL (40-350); IMMUNOGLOBULIN G 1551 MG/DL (650-1600); IMMUNOGLOBULIN M 61.9 MG/DL (50-300)
[2023-09-16 09:37] LABS: PROCALCITONIN <0.04 ng/ml
[2023-09-16 09:40] LABS: BLOOD UREA NITROGEN 18 MG/DL (9-23); CALCIUM LEVEL 8.5 MG/DL (8.3-10.6); CARBON DIOXIDE LEVEL 33 MMOL/L (20-31); CHLORIDE LEVEL 99 MMOL/L (98-107); CREATININE FOR GFR 0.85 MG/DL (0.55-1.30); GLOMERULAR FILTRATION RATE > 60.0 (>45); GLUCOSE, FASTING 120 MG/DL (74-106); POTASSIUM SERUM 4.3 MMOL/L (3.5-5.1); SODIUM LEVEL 138 MMOL/L (136-145)
[2023-09-16] MEDS ORDERED: CIPRHCOTIC OTIC (10:02)
[2023-09-16] MEDS ORDERED: amLODIPine 5 MG TAB PO SCH (15:00)
== END 2023-09-16 13:08 | disposition home or self-care (01) ==
LOC: M ED 21:05 → INTOOBSV 23:31 → M ED INP 23:31 → M MSPAV 09-16 00:33
PROVIDERS: ADMIT Family Medicine; ATTEND Internal Medicine
DX: H60.63 Unspecified chronic otitis externa, bilateral (principal); H66.93 Otitis media, unspecified, bilateral; E11.9 Type 2 diabetes mellitus without complications; J44.9 Chronic obstructive pulmonary disease, unspecified; I10 Essential (primary) hypertension; I87.2 Venous insufficiency (chronic) (peripheral); E78.5 Hyperlipidemia, unspecified; R60.0 Localized edema; E66.01 Morbid (severe) obesity due to excess calories; Z99.81 Dependence on supplemental oxygen; Z79.899 Other long term (current) drug therapy; Z79.2 Long term (current) use of antibiotics; Z79.84 Long term (current) use of oral hypoglycemic drugs; Z87.891 Personal history of nicotine dependence; H66.92 Otitis media, unspecified, left ear
CPT/HCPCS: 36415; 70480; 80048; 80076; 82784; 83605; 83735; 84145; 85025; 85652; 86140; 87040; 87631; 93041; 94640; 94760; 96365; 96372; 96376; 99285; G0378; J2543

== ENCOUNTER → 2023-09-15 | Outpatient (CLI) | payer MEDICARE, MEDICAID | LOC: M PLAIMG 13:33 | PROVIDERS: ATTEND Student in an Organized Health Care Education/Training Program | DX: H66.92 Otitis media, unspecified, left ear (principal) ==

== ENCOUNTER → 2023-10-27 | Outpatient (CLI) | payer MEDICARE, MEDICAID ==
[~2023-10-27] MED LIST changes: +AIRD1INH3 INH; +ALBU2.5V10 INH; +ALBU8.5H INH; +ASPI-161 PO; +AZIT-12 PO; +CEFD1CAP9 PO; -CEFD300C42 PO; +CIPRHCOTIC OTIC; +INCR1INH INH; +LISI5TAB11; +LISI5TAB11 PO
[2023-10-27 16:14] LABS: BASO # 0.1 10^3/uL (0.0-0.2); BASO % 0.7 % (0.0-1.0); EOS # 0.2 10^3/uL (0.0-0.5); EOS % 1.8 % (0.0-3.0); HEMATOCRIT 39.9 % (36.0-47.0); HEMOGLOBIN 11.4 g/dl (12.0-15.5); LYMPH # 2.2 10^3/uL (1.5-5.0); LYMPH % 26.4 % (24.0-44.0); MEAN CORPUSCULAR HEMOGLOBIN 25.6 pg (27.0-33.0); MEAN CORPUSCULAR HGB CONC 28.6 g/dl (32.0-36.5); MEAN CORPUSCULAR VOLUME 89.5 fl (80.0-96.0); MONO # 0.5 10^3/uL (0.0-0.8); MONO % 6.2 % (2.0-8.0); NEUTROPHILS # 5.3 10^3/uL (1.5-8.5); NEUTROPHILS % 64.3 % (36.0-66.0); PLATELET COUNT, AUTOMATED 354 10^3/uL (150-450); RED BLOOD COUNT 4.46 10^6/uL (4.00-5.40); WHITE BLOOD COUNT 8.2 10^3/uL (4.0-10.0)
[2023-10-27 16:21] LABS: ERYTHROCYTE SEDIMENTATION RATE 96 mm/hr (0-30)
[2023-10-27 16:35] LABS: URIC ACID 6.9 MG/DL (3.1-7.8)
[2023-10-27 16:38] LABS: ALBUMIN 3.4 G/DL (3.2-5.2); ALKALINE PHOSPHATASE 119 U/L (46-116); ALT/SGPT 16 U/L (7.0-40); AST/SGOT 9 U/L (<34); BILIRUBIN,TOTAL 0.2 MG/DL (0.3-1.2); BLOOD UREA NITROGEN 23 MG/DL (9-23); CALCIUM LEVEL 9.4 MG/DL (8.3-10.6); CARBON DIOXIDE LEVEL 37 MMOL/L (20-31); CHLORIDE LEVEL 96 MMOL/L (98-107); CREATININE FOR GFR 0.73 MG/DL (0.55-1.30); GLOMERULAR FILTRATION RATE > 60.0 (>45); GLUCOSE, FASTING 142 MG/DL (74-106); POTASSIUM SERUM 4.5 MMOL/L (3.5-5.1); RHEUMATOID FACTOR QUANT < 3.5 IU/ML (<14); SODIUM LEVEL 136 MMOL/L (136-145); TOTAL PROTEIN 7.4 G/DL (5.7-8.2)
[2023-10-29 14:10] LABS: ANTINUCLEAR ANTIBODIES DIRECT Negative (Negative)
== END ==
LOC: M PLALAB 14:25
PROVIDERS: ATTEND Student in an Organized Health Care Education/Training Program
DX: M25.561 Pain in right knee (principal)

== ENCOUNTER → 2023-11-24 | Outpatient (CLI) | payer MEDICARE, MEDICAID ==
[2023-11-24 15:49] LABS: HEMOGLOBIN A1c 7.1 % (4.0-6.0)
[2023-11-24 16:05] LABS: BLOOD UREA NITROGEN 25 MG/DL (9-23); CALCIUM LEVEL 9.4 MG/DL (8.3-10.6); CARBON DIOXIDE LEVEL 38 MMOL/L (20-31); CHLORIDE LEVEL 97 MMOL/L (98-107); CREATININE FOR GFR 0.81 MG/DL (0.55-1.30); GLOMERULAR FILTRATION RATE > 60.0 (>45); GLUCOSE, FASTING 100 MG/DL (74-106); SODIUM LEVEL 138 MMOL/L (136-145)
[2023-11-24 20:06] LABS: CREATININE, URINE 57.2 MG/DL; MAU/CREAT RATIO 503.4 MCG/MG (0.0-30.0)
== END ==
LOC: M PLALAB 14:04
PROVIDERS: ATTEND Student in an Organized Health Care Education/Training Program
DX: E11.9 Type 2 diabetes mellitus without complications (principal)

== ENCOUNTER → 2023-11-28 | Outpatient (CLI) | payer MEDICARE, MEDICAID | LOC: M PLAIMG 15:41 | PROVIDERS: ATTEND Student in an Organized Health Care Education/Training Program | DX: J98.11 Atelectasis (principal); J06.9 Acute upper respiratory infection, unspecified ==

== ENCOUNTER → 2024-02-21 | Outpatient (CLI) | payer MEDICARE, MEDICAID ==
[~2024-02-21] MED LIST changes: -ASPI-161 PO; +ASPI-615 PO
== END ==
LOC: M RAD 14:49
PROVIDERS: ATTEND Internal Medicine Pulmonary Disease
DX: Z12.2 Encounter for screening for malignant neoplasm of respiratory organs (principal); Z87.891 Personal history of nicotine dependence; R91.8 Other nonspecific abnormal finding of lung field; I25.10 Atherosclerotic heart disease of native coronary artery without angina pectoris; I70.0 Atherosclerosis of aorta; I51.7 Cardiomegaly; K76.0 Fatty (change of) liver, not elsewhere classified

== ENCOUNTER → 2024-04-30 | Outpatient (REF) | payer MEDICARE, MEDICAID ==
[~2024-04-30] MED LIST changes: +DOXY-440 PO; -DOXY-444 PO
[2024-04-30 12:59] LABS: ALBUMIN 3.5 G/DL (3.2-5.2); BILIRUBIN,TOTAL 0.2 MG/DL (0.3-1.2); CALCIUM LEVEL 9.1 MG/DL (8.3-10.6); CREATININE FOR GFR 1.16 MG/DL (0.55-1.30); GLOMERULAR FILTRATION RATE 49.9 (>45); POTASSIUM SERUM 5.7 MMOL/L (3.5-5.1); TOTAL PROTEIN 7.4 G/DL (5.7-8.2)
[2024-04-30 13:02] LABS: THYROID STIMULATING HORMONE 4.445 uIU/ML (0.55-4.78)
== END ==
LOC: M LAB REF 11:58
PROVIDERS: ATTEND Family Medicine Addiction Medicine
DX: E11.9 Type 2 diabetes mellitus without complications (principal)

== ENCOUNTER → 2024-05-03 | Outpatient (REF) | payer MEDICARE, MEDICAID ==
[2024-05-03 13:57] LABS: CALCIUM LEVEL 9.1 MG/DL (8.3-10.6); CREATININE FOR GFR 1.39 MG/DL (0.55-1.30); GLOMERULAR FILTRATION RATE 40.5 (>45)
== END ==
LOC: M LAB REF 11:56
PROVIDERS: ATTEND Family Medicine Addiction Medicine
DX: E78.5 Hyperlipidemia, unspecified (principal)

== ENCOUNTER → 2024-05-10 | Outpatient (REF) | payer MEDICARE, MEDICAID ==
[2024-05-10 19:08] LABS: BLOOD UREA NITROGEN 19 MG/DL (9-23); CALCIUM LEVEL 9.2 MG/DL (8.3-10.6); CARBON DIOXIDE LEVEL 37 MMOL/L (20-31); CHLORIDE LEVEL 99 MMOL/L (98-107); CREATININE FOR GFR 0.95 MG/DL (0.55-1.30); GLOMERULAR FILTRATION RATE > 60.0 (>45); GLUCOSE, FASTING 150 MG/DL (74-106); SODIUM LEVEL 139 MMOL/L (136-145)
== END ==
LOC: M LAB REF 17:33
PROVIDERS: ATTEND Family Medicine Addiction Medicine
DX: N28.9 Disorder of kidney and ureter, unspecified (principal)

== ENCOUNTER → 2024-07-04 | Outpatient (REF) | payer MEDICARE, MEDICAID ==
[2024-07-04 12:20] LABS: CREATININE, URINE 115.7 MG/DL; MAU/CREAT RATIO 30.2 MCG/MG (0.0-30.0)
[2024-07-04 12:23] LABS: CALCIUM LEVEL 9.3 MG/DL (8.3-10.6); CREATININE FOR GFR 1.02 MG/DL (0.55-1.30); GLOMERULAR FILTRATION RATE 57.9 (>45); POTASSIUM SERUM 5.5 MMOL/L (3.5-5.1)
== END ==
LOC: M LAB REF 11:06
PROVIDERS: ATTEND Family Medicine Addiction Medicine
DX: E87.5 Hyperkalemia (principal); E11.9 Type 2 diabetes mellitus without complications

== ENCOUNTER → 2024-07-26 | Outpatient (REF) | payer MEDICARE, MEDICAID ==
[2024-07-26 18:02] LABS: BLOOD UREA NITROGEN 14 MG/DL (9-23); CALCIUM LEVEL 9.9 MG/DL (8.3-10.6); CARBON DIOXIDE LEVEL 37 MMOL/L (20-31); CHLORIDE LEVEL 100 MMOL/L (98-107); CREATININE FOR GFR 0.75 MG/DL (0.55-1.30); GLOMERULAR FILTRATION RATE > 60.0 (>45); GLUCOSE, FASTING 140 MG/DL (74-106); POTASSIUM SERUM 4.7 MMOL/L (3.5-5.1); SODIUM LEVEL 137 MMOL/L (136-145)
== END ==
LOC: M LAB REF 16:39
PROVIDERS: ATTEND Family Medicine Addiction Medicine
DX: N28.9 Disorder of kidney and ureter, unspecified (principal)

== ENCOUNTER → 2024-08-03 | Outpatient (REF) | payer MEDICARE, MEDICAID ==
[2024-08-03 17:27] LABS: BLOOD UREA NITROGEN 23 MG/DL (9-23); CALCIUM LEVEL 9.5 MG/DL (8.3-10.6); CARBON DIOXIDE LEVEL 37 MMOL/L (20-31); CHLORIDE LEVEL 98 MMOL/L (98-107); CREATININE FOR GFR 0.95 MG/DL (0.55-1.30); GLOMERULAR FILTRATION RATE > 60.0 (>45); GLUCOSE, FASTING 164 MG/DL (74-106); POTASSIUM SERUM 4.9 MMOL/L (3.5-5.1); SODIUM LEVEL 136 MMOL/L (136-145)
== END ==
LOC: M LAB REF 16:35
PROVIDERS: ATTEND Family Medicine Addiction Medicine
DX: N28.9 Disorder of kidney and ureter, unspecified (principal)

== ENCOUNTER → 2024-08-14 | Outpatient (REF) | payer MEDICARE, MEDICAID ==
[2024-08-14 12:54] LABS: CREATININE, URINE 44.2 MG/DL; MAU/CREAT RATIO 11.3 MCG/MG (0.0-30.0)
[2024-08-14 19:00] LABS: ALBUMIN 3.5 G/DL (3.2-5.2); ALKALINE PHOSPHATASE 162 U/L (46-116); ALT/SGPT 22 U/L (7.0-40); AST/SGOT 11 U/L (<34); BILIRUBIN,TOTAL 0.3 MG/DL (0.3-1.2); BLOOD UREA NITROGEN 22 MG/DL (9-23); CALCIUM LEVEL 9.9 MG/DL (8.3-10.6); CARBON DIOXIDE LEVEL 36 MMOL/L (20-31); CHLORIDE LEVEL 97 MMOL/L (98-107); CREATININE FOR GFR 0.96 MG/DL (0.55-1.30); GLOMERULAR FILTRATION RATE > 60.0 (>45); GLUCOSE, FASTING 138 MG/DL (74-106); POTASSIUM SERUM 5.1 MMOL/L (3.5-5.1); SODIUM LEVEL 135 MMOL/L (136-145); TOTAL PROTEIN 7.9 G/DL (5.7-8.2)
[2024-08-14 19:01] LABS: THYROID STIMULATING HORMONE 3.663 uIU/ML (0.55-4.78)
[2024-08-14 19:29] LABS: HEMOGLOBIN A1c 6.7 % (4.0-6.0)
== END ==
LOC: M LAB REF 12:01
PROVIDERS: ATTEND Family Medicine Addiction Medicine
DX: E11.9 Type 2 diabetes mellitus without complications (principal)

== ENCOUNTER → 2024-11-12 | Outpatient (REF) | payer MEDICARE, MEDICAID ==
[~2024-11-12] MED LIST changes: -LEVO750T14 PO; +LEVO75TAB PO
[2024-11-12 13:26] LABS: ALBUMIN 3.5 G/DL (3.2-5.2); ALKALINE PHOSPHATASE 145 U/L (35-104); ALT/SGPT 11 U/L (7.0-40); AST/SGOT < 8 U/L (<34); BILIRUBIN,TOTAL 0.2 MG/DL (0.3-1.2); BLOOD UREA NITROGEN 48 MG/DL (9-23); CALCIUM LEVEL 9.6 MG/DL (8.3-10.6); CARBON DIOXIDE LEVEL 30 MMOL/L (20-31); CHLORIDE LEVEL 101 MMOL/L (98-107); CREATININE FOR GFR 1.48 MG/DL (0.55-1.30); GLOMERULAR FILTRATION RATE 37.7 (>45); GLUCOSE, FASTING 128 MG/DL (74-106); POTASSIUM SERUM 5.1 MMOL/L (3.5-5.1); SODIUM LEVEL 139 MMOL/L (136-145); TOTAL PROTEIN 7.6 G/DL (5.7-8.2)
[2024-11-12 13:28] LABS: THYROID STIMULATING HORMONE 5.837 uIU/ML (0.55-4.78)
[2024-11-12 13:38] LABS: HEMOGLOBIN A1c 7.4 % (4.0-6.0)
== END ==
LOC: M LAB REF 12:50
PROVIDERS: ATTEND Family Medicine Addiction Medicine
DX: E11.9 Type 2 diabetes mellitus without complications (principal)

== ENCOUNTER → 2024-11-22 | Outpatient (REF) | payer MEDICARE, MEDICAID ==
[2024-11-23 15:02] LABS: ALBUMIN 3.4 G/DL (3.2-5.2); ALKALINE PHOSPHATASE 141 U/L (35-104); ALT/SGPT 16 U/L (7.0-40); AST/SGOT < 8 U/L (<34); BILIRUBIN,TOTAL 0.2 MG/DL (0.3-1.2); BLOOD UREA NITROGEN 25 MG/DL (9-23); CALCIUM LEVEL 9.6 MG/DL (8.3-10.6); CARBON DIOXIDE LEVEL 34 MMOL/L (20-31); CHLORIDE LEVEL 99 MMOL/L (98-107); CHOLESTEROL LEVEL 121 MG/DL (<200); CHOLESTEROL RISK RATIO 3.11 (<5); CREATININE FOR GFR 0.91 MG/DL (0.55-1.30); GLOMERULAR FILTRATION RATE > 60.0 (>45); GLUCOSE, FASTING 144 MG/DL (74-106); HDL CHOLESTEROL 38.8 MG/DL (>40); LDL CHOLESTEROL 43.2 MG/DL (<100); NON-HDL-C 82.2 MG/DL; SODIUM LEVEL 139 MMOL/L (136-145); TOTAL PROTEIN 7.8 G/DL (5.7-8.2); TRIGLYCERIDES LEVEL 195 MG/DL (<150)
[2024-11-23 15:04] LABS: THYROID STIMULATING HORMONE 5.714 uIU/ML (0.55-4.78)
[2024-11-23 15:05] LABS: FREE T4 1.14 NG/DL (0.89-1.76)
[2024-11-23 15:41] LABS: HEMOGLOBIN A1c 7.5 % (4.0-6.0)
== END ==
LOC: M LAB REF 14:13
PROVIDERS: ATTEND Family Medicine Addiction Medicine
DX: E11.9 Type 2 diabetes mellitus without complications (principal); N28.9 Disorder of kidney and ureter, unspecified; R94.6 Abnormal results of thyroid function studies

== ENCOUNTER → 2025-02-21 | Outpatient (REF) | payer MEDICARE, MEDICAID ==
[2025-02-21 15:27] LABS: ALBUMIN 3.3 G/DL (3.2-5.2); ALKALINE PHOSPHATASE 141 U/L (35-104); ALT/SGPT 14 U/L (7.0-40); AST/SGOT < 8 U/L (<34); BILIRUBIN,TOTAL 0.3 MG/DL (0.3-1.2); BLOOD UREA NITROGEN 24 MG/DL (9-23); CALCIUM LEVEL 9.5 MG/DL (8.3-10.6); CARBON DIOXIDE LEVEL 38 MMOL/L (20-31); CHLORIDE LEVEL 96 MMOL/L (98-107); CHOLESTEROL LEVEL 120 MG/DL (<200); CHOLESTEROL RISK RATIO 2.76 (<5); GLOMERULAR FILTRATION RATE 62.5 (>45); GLUCOSE, FASTING 124 MG/DL (74-106); HDL CHOLESTEROL 43.4 MG/DL (>40); LDL CHOLESTEROL 45.2 MG/DL (<100); NON-HDL-C 76.6 MG/DL; POTASSIUM SERUM 5.5 MMOL/L (3.5-5.1); SODIUM LEVEL 140 MMOL/L (136-145); THYROID STIMULATING HORMONE 4.608 uIU/ML (0.55-4.78); TOTAL PROTEIN 7.5 G/DL (5.7-8.2); TRIGLYCERIDES LEVEL 157 MG/DL (<150)
== END ==
LOC: M LAB REF 14:27
PROVIDERS: ATTEND Family Medicine Addiction Medicine
DX: E11.9 Type 2 diabetes mellitus without complications (principal)

== ENCOUNTER → 2025-03-07 | Outpatient (CLI) | payer MEDICARE, MEDICAID | LOC: M RAD 13:00 | PROVIDERS: ATTEND Internal Medicine Pulmonary Disease | DX: R91.8 Other nonspecific abnormal finding of lung field (principal); J98.11 Atelectasis; J43.9 Emphysema, unspecified ==

== ENCOUNTER → 2025-06-07 | Outpatient (REF) | payer MEDICARE, MEDICAID ==
[~2025-06-07] MED LIST changes: +AMMO12CR4 TOP; -AMMO12CR7 TOP
[2025-06-07 17:47] LABS: ALT/SGPT 13.0 U/L (7.0-40); AST/SGOT 9.0 U/L (<34); CALCIUM LEVEL 9.2 MG/DL (8.3-10.6); CARBON DIOXIDE LEVEL 33.0 MMOL/L (20-31); CHLORIDE LEVEL 96.0 MMOL/L (98-107); CHOLESTEROL LEVEL 107.0 MG/DL (<200); CHOLESTEROL RISK RATIO 2.66 (<5); CREATININE FOR GFR 0.9 MG/DL (0.55-1.30); GLOMERULAR FILTRATION RATE 70.5 (>45); LDL CHOLESTEROL 38.7 MG/DL (<100); NON-HDL-C 66.9 MG/DL; POTASSIUM SERUM 4.8 MMOL/L (3.5-5.1); SODIUM LEVEL 138.0 MMOL/L (136-145); TRIGLYCERIDES LEVEL 141.0 MG/DL (<150)
[2025-06-07 18:11] LABS: ESTIMATED AVERAGE GLUCOSE 166.0 MG/DL (60-110)
== END ==
LOC: M LAB REF 17:08
PROVIDERS: ATTEND Family Medicine Addiction Medicine
DX: E11.9 Type 2 diabetes mellitus without complications (principal)

== ENCOUNTER 2025-10-01 17:37 | Observation (INO) | payer MEDICARE, MEDICAID ==
[~2025-10-01] VITALS: Ht 170.2 cm; Wt 138.6 kg
[2025-10-01 18:57] LABS: VENOUS BASE EXCESS 12.9 (-2.0-2.0); VENOUS HCO3 41.6 MMOL/L (23.0-27.0); VENOUS O2 SATURATION 78.5 % (60.0-80.0); VENOUS PARTIAL PRESSURE CO2 86.6 mmHg (38.0-50.0); VENOUS PARTIAL PRESSURE O2 51.0 mmHg (30.0-50.0); VENOUS PH 7.299 UNITS (7.330-7.430); VENOUS STANDARD HCO3 36.3 MMOL/L; VENOUS TOTAL CO2 44.2 MMOL/L (24.0-28.0)
[2025-10-01 19:03] LABS: BASO # 0.1 10^3/uL (0.0-0.2); BASO % 0.7 % (0.0-1.0); EOS # 0.7 10^3/uL (0.0-0.5); EOS % 7.1 % (0.0-3.0); LYMPH # 1.9 10^3/uL (1.5-5.0); LYMPH % 19.8 % (24.0-44.0); MONO # 0.5 10^3/uL (0.0-0.8); MONO % 5.5 % (2.0-8.0); NEUTROPHILS # 6.4 10^3/uL (1.5-8.5); NEUTROPHILS % 65.8 % (36.0-66.0); PLATELET COUNT, AUTOMATED 448 10^3/uL (150-450)
[2025-10-01 19:34] LABS: CK-MB VALUE MASS < 1.0 NG/ML (<3.6)
[2025-10-01 19:37] LABS: ALT/SGPT 14 U/L (7.0-40); AST/SGOT 14 U/L (<34)
[2025-10-01 19:38] LABS: THYROXINE (T4) 8.2 UG/DL (4.5-10.9)
[2025-10-01 19:44] LABS: CPK CREATINE PHOSPHOKINASE 44 U/L (34-145)
[2025-10-01] MEDS: dexAMETHasone 4 MG/ML 1 ML VIAL PO ONE (21:06)
[2025-10-01] MEDS: IPRATROPIUM 0.5 MG/ALBUTEROL 2.5 MG INH SOL UD 3 ML NEB STA (21:08)
[2025-10-02 03:42] LABS: INR 0.94
[2025-10-02] MEDS ORDERED: GLUCAGON INJ 1 MG VIAL SC PRN (04:00)
[2025-10-02] MEDS ORDERED: GLUCOSE 4 GM CHEW PO PRN (04:00)
[2025-10-02] MEDS ORDERED: DEXTROSE 50% 50 ML SYRINGE IV PRN (04:00)
[2025-10-02] MEDS ORDERED: ISOVUE-370 76% 100 ML VIAL As Ordered ONE (04:24)
[2025-10-02 04:39] LABS: ABG BASE EXCESS 11.1 (-2.0-2.0); ABG HCO3 38.9 MMOL/L (22.0-26.0); ABG O2 SATURATION 92.8 % (95.0-99.0); ABG PARTIAL PRESSURE O2 69.1 mmHg (75.0-100.0); ABG STANDARD HCO3 34.7 MMOL/L. (22.0-26.0); ABG TOTAL CO2 41.3 MMOL/L (23.0-31.0); ABG pH (ARTERIAL) 7.323 UNITS (7.350-7.450)
[2025-10-02 04:40] VITALS: BP 137/71; TEMP 97.8; O2SAT 89
[2025-10-02 04:44] LABS: ABG PARTIAL PRESSURE CO2 76.8 mmHg (35.0-45.0)
[2025-10-02 04:55] VITALS: BP 135/61; TEMP 97.4; O2SAT 90
[2025-10-02 05:42] VITALS: BP 113/56; TEMP 98.2; O2SAT 88
[2025-10-02 06:47] VITALS: BP 118/56; TEMP 98.8; O2SAT 91
[2025-10-02] MEDS: BUDESONIDE 0.5 MG/2 ML INHALATION SUSPENSION NEB SCH (08:04)
[2025-10-02] MEDS: IPRATROPIUM 0.5 MG/ALBUTEROL 2.5 MG INH SOL UD 3 ML NEB SCH (08:04)
[2025-10-02] MEDS: TIOTROPIUM BROM 2.5MCG/ACTUATION 4GM INH INH SCH (08:04)
[2025-10-02] MEDS: INSULIN LISPRO (NovoLOG) PER UNIT SC SCH ×2 (08:05→21:00)
[2025-10-02] MEDS ORDERED: FLUT15.820 NARES (08:18)
[2025-10-02] MEDS ORDERED: BREO1INH INH (08:18)
[2025-10-02] MEDS ORDERED: ATOR40TA75 PO (08:18)
[2025-10-02] MEDS ORDERED: HOME MED LIST COMPLETE! XX SCH (08:20)
[2025-10-02 08:27] LABS: PLATELET COUNT, AUTOMATED 478 10^3/uL (150-450)
[2025-10-02 08:52] LABS: CALCIUM LEVEL 9.4 MG/DL (8.3-10.6); CARBON DIOXIDE LEVEL 35.0 MMOL/L (20-31); CHLORIDE LEVEL 97.0 MMOL/L (98-107); CREATININE FOR GFR 0.95 MG/DL (0.55-1.30); GLOMERULAR FILTRATION RATE 66.1 (>45); IRON (FE) 45.0 UG/DL (50-170); PERCENT SATURATION 11.5 % (13.2-45.0); POTASSIUM SERUM 5.4 MMOL/L (3.5-5.1); SODIUM LEVEL 140.0 MMOL/L (136-145)
[2025-10-02 08:54] LABS: VITAMIN B12 LEVEL 498.0 PG/ML (211-911)
[2025-10-02] MEDS ORDERED: ALBUTEROL SULFATE 2.5 MG/0.5 ML INH CONCENTRATE NEB SOLN INH PRN (09:55)
[2025-10-02] MEDS: FUROSEMIDE 40 MG TAB PO SCH (10:38)
[2025-10-02] MEDS: ASPIRIN 81 MG ENTERIC TABLET PO SCH (10:38)
[2025-10-02] MEDS: amLODIPine 10 MG TAB PO ONE (12:20)
[2025-10-02 13:40] VITALS: O2SAT 94
[2025-10-02 20:01] VITALS: O2SAT 87
[2025-10-02] MEDS: ATORVASTATIN 20 MG TAB PO SCH (21:20)
[2025-10-02] MEDS: FERRIC CARBOXYMALTOSE INJ 750 MG, VIAL MATE ADAPTER 1 EACH in NS 100 ML IV ONE (22:14)
[2025-10-03] MEDS: ACETAMINOPHEN 325 MG TAB PO PRN (02:13)
[2025-10-03 08:14] LABS: BASO # 0.0 10^3/uL (0.0-0.2); BASO % 0.1 % (0.0-1.0); EOS # 0.0 10^3/uL (0.0-0.5); EOS % 0.1 % (0.0-3.0); LYMPH # 0.8 10^3/uL (1.5-5.0); LYMPH % 7.1 % (24.0-44.0); MONO # 0.4 10^3/uL (0.0-0.8); MONO % 3.8 % (2.0-8.0); NEUTROPHILS # 9.6 10^3/uL (1.5-8.5); NEUTROPHILS % 85.9 % (36.0-66.0); PLATELET COUNT, AUTOMATED 444 10^3/uL (150-450)
[2025-10-03 08:36] LABS: CALCIUM LEVEL 9.2 MG/DL (8.3-10.6); CARBON DIOXIDE LEVEL 37.0 MMOL/L (20-31); CHLORIDE LEVEL 95.0 MMOL/L (98-107); CREATININE FOR GFR 0.94 MG/DL (0.55-1.30); GLOMERULAR FILTRATION RATE 66.9 (>45); POTASSIUM SERUM 5.0 MMOL/L (3.5-5.1); SODIUM LEVEL 139.0 MMOL/L (136-145)
[2025-10-03 08:50] VITALS: BP 133/61
[2025-10-03 09:30] VITALS: TEMP 97.6
[2025-10-03] MEDS ORDERED: DOXY100C3 PO (10:48)
[2025-10-03] MEDS ORDERED: PRED20TA PO (10:48)
[2025-10-03 11:01] VITALS: BP 174/73
[2025-10-03] MEDS ORDERED: AMLO1TAB25 PO (11:24)
[2025-10-03 12:01] VITALS: O2SAT 86
== END 2025-10-03 13:00 | disposition home or self-care (01) ==
LOC: M ED 17:37 → INTOOBSV 10-02 03:59 → M ED INP 10-02 03:59
PROVIDERS: ADMIT Internal Medicine; ATTEND Internal Medicine
DX: J96.21 Acute and chronic respiratory failure with hypoxia (principal); J96.22 Acute and chronic respiratory failure with hypercapnia; J44.1 Chronic obstructive pulmonary disease with (acute) exacerbation; D50.9 Iron deficiency anemia, unspecified; E11.9 Type 2 diabetes mellitus without complications; I11.0 Hypertensive heart disease with heart failure; I50.32 Chronic diastolic (congestive) heart failure; Z99.81 Dependence on supplemental oxygen; E87.3 Alkalosis; E66.01 Morbid (severe) obesity due to excess calories; G47.33 Obstructive sleep apnea (adult) (pediatric); Z79.899 Other long term (current) drug therapy; Z79.2 Long term (current) use of antibiotics; Z79.84 Long term (current) use of oral hypoglycemic drugs; Z79.82 Long term (current) use of aspirin; Z87.891 Personal history of nicotine dependence
CPT/HCPCS: 36415; 36430; 36600; 71045; 71250; 71275; 80047; 80048; 80076; 82550; 82553; 82607; 82728; 82746; 82803; 83550; 83605; 83880; 84132; 84145; 84436; 84443; 84484; 85014; 85018; 85025; 85027; 85610; 85730; 86850; 86900; 86901; 86920; 87040; 87486; 87581; 87633; 87798; 93005; 93041; 93306; 94640; 94760; 96374; 96375; 96376; 99285; G0378; J1100; J1439; J1815; J2919; P9016; Q9967